=== PATIENT | male | born 1990 | race Two or more races ===

== ENCOUNTER 2025-04-20 23:25 | Emergency (ER) | payer OTHER ==
[~2025-04-20] VITALS: Ht 185.4 cm; Wt 128.8 kg
[2025-04-21 01:04] VITALS: BP 122/68; PULSE 57; RESP 16; TEMP 98.6; O2SAT 95
[2025-04-21] MEDS: HYDROcodone-ACET 5/325MG TAB PO ONE (01:04)
[2025-04-21] MEDS: KETOROLAC TROMETH 60MG/2ML VIAL IM ONE (01:04)
[2025-04-21] MEDS: cefTRIAXone SOD 1,000 MG VL IM ONE (01:05)
[2025-04-21] MEDS: BENZOCAINE (DENTAL) 20 % SPRAY 60ML MT ONE (01:05)
[2025-04-21] MEDS ORDERED: CLIN1CAP70 PO (01:12)
[2025-04-21] MEDS ORDERED: IBUP-1456 PO (01:12)
--- NOTE | 2025-04-21 01:13 | ED.PDOC ---
Eye-HPI HPI Comments PT CAME INTO THE ER WITH CC OF TOOTH PAIN X2 DAYS ON THE RIGHT SIDE. PT IS A&OX4 RR EVEN AND REGULAR NO DISTRESS NOTED AT THIS TIME. PT DENIES N/V/D CP SOB. PT ALSO STATES THAT HE HAS BEEN HAVING URINARY URGENCY ISSUES X1 DAY. DENIES THROAT SWELLING, CP, DEL FEVER/CHILLS Chief Complaint: Tooth Pain Time Seen by MD: 23:29 Reviewed Notes: Nurses Notes, Medications, Allergies Home Meds Active Scripts Ibuprofen (Ibuprofen) 800 Mg Tab, 800 MG PO Q8HP PRN for 5 Days, #15 TAB Prov:KVNG WANGK ELECTROPHYSIOLOGY TECHNOLOGIST 04/21/25 Clindamycin Hcl (Clindamycin Hcl) 300 Mg Cap, 300 MG PO QID for 7 Days, #28 CAP Prov:RADHA WANG ELECTROPHYSIOLOGY TECHNOLOGIST 04/21/25 Information Source: Patient Mode of Arrival: Ambulatory Past Medical History PAST MEDICAL HISTORY: Denies Surgical History: Denies all surgeries Family History Family History: Unknown Social History Smoker: Non-Smoker Alcohol: Denies ETOH Use Drugs: Denies Drug Use All Other Systems: Reviewed and Negative (see hpi) Physical Exam General Appearance: No Apparent Distress, Normal HEENT: Normal ENT Inspection, Pharynx Normal, TMs Normal Neck: Full Range of Motion, Non-Tender, Normal, Normal Inspection Respiratory: Chest Non-Tender, Lungs Clear, No Accessory Muscle Use, No Respiratory Distress, Normal Breath Sounds Cardiovascular: No Edema, No JVD, No Murmur, No Gallop, Normal Peripheral Pulses, Regular Rate/Rhythm Breast Exam: Deferred Gastrointestinal: No Organomegaly, Non Tender, No Pulsatile Mass, Normal Bowel Sounds, Soft Genitalia: Deferred Pelvic: Deferred Rectal: Deferred Extremities: No calf tenderness, Normal capillary refill, Normal inspection, Normal range of motion, Non-tender, No pedal edema Musculoskeletal : Apperance: Normal Neurologic: Alert, channel development director II-XII nml as Tested, No Motor Deficits, Normal Affect, Normal Mood, No Sensory Deficits Cerebellar Function: Normal Reflexes: Normal Skin: Dry, Normal Color, Warm Lymphatic: No Adenopathy Was a procedure done? Was a procedure done?: No EENT DIFF Eye: N/A Sore Throat: Kyle's Angina, Peritonsillar Abscess, Peritonsillar Cellulitis, Pharyngitis X-Ray, Labs, Meds, VS Vital Signs Date Time Temp Pulse Resp B/P (MAP) Pulse Ox O2 Delivery O2 Flow Rate FiO2 04/21/25 01:04 57 16 95 Room Air 04/21/25 01:04 98.6 57 16 122/68 (86) 95 98.6 04/20/25 23:28 97.1 64 18 123/42 97 97.1 Current Medications Medications (Trade) Dose Ordered Sig/Portia Route Start Time Stop Time Status Last Admin Ketorolac Tromethamine (Toradol Injection) 60 mg ONCE ONCE IM 04/21/25 00:45 04/21/25 00:46 DC 04/21/25 01:04 Ceftriaxone Sodium (Rocephin) 1,000 mg ONCE ONCE IM 04/21/25 00:45 04/21/25 00:46 DC 04/21/25 01:05 Benzocaine (Hurricaine [place]) 1 spr ONCE ONCE MT 04/21/25 00:45 04/21/25 00:46 DC 04/21/25 01:05 Acetaminophen/ Hydrocodone Bitart ([place] 5/325MG Tab) 1 tab ONCE ONCE PO 04/21/25 00:45 04/21/25 00:46 DC 04/21/25 01:04 Time of 1ST Reevaluation: 23:29 Reevaluation 1ST: Unchanged Time of 2ND Reevaluation: 01:10 Reevaluation 2ND: Improved Patient Education/Counseling: Diagnosis, Treatment, Need For Follow Up Family Education/Counseling: Diagnosis, Treatment, Need For Follow Up SEPSIS Sepsis Screen Date sepsis recognized/suspect: Apr 20, 2025 Time Sepsis recognized/suspect: 3 Recent Procedure: No On Antibiotic Therapy: No Respiratory Rate >20: No Heart Rate >90: No Temp<36 C (96.8 F) or >38.3 C: No SBP <90 or MAP <65 mmHG: No New Acute Mental Status Change: No Is the patient on CPAP, BIPAP,: No Vital Signs Date Time Temp Pulse Resp B/P (MAP) Pulse Ox O2 Delivery O2 Flow Rate FiO2 04/21/25 01:04 57 16 95 Room Air 04/21/25 01:04 98.6 57 16 122/68 (86) 95 98.6 04/20/25 23:28 97.1 64 18 123/42 97 97.1 Medications Medications Dose Ordered Sig/Portia Route Start Time Stop Time Status Last Admin Dose Admin Acetaminophen/ Hydrocodone Bitart 1 tab ONCE ONCE PO 04/21/25 00:45 04/21/25 00:46 DC 04/21/25 01:04 Benzocaine 1 spr ONCE ONCE MT 04/21/25 00:45 04/21/25 00:46 DC 04/21/25 01:05 Ceftriaxone Sodium 1,000 mg ONCE ONCE IM 04/21/25 00:45 04/21/25 00:46 DC 04/21/25 01:05 Ketorolac Tromethamine 60 mg ONCE ONCE IM 04/21/25 00:45 04/21/25 00:46 DC 04/21/25 01:04 Departure 1 Departure Time of Disposition: 01:10 Impression: Primary Impression: Infected dental caries Disposition: 01 HOME / SELF CARE / HOMELESS Condition: Stable e-Prescriptions Ibuprofen (Ibuprofen) 800 Mg Tab 800 MG PO Q8HP PRN for 5 Days, #15 TAB Prov: RADHA WANG 04/21/25 Clindamycin Hcl (Clindamycin Hcl) 300 Mg Cap 300 MG PO QID for 7 Days, #28 CAP Prov: RADHA WANG 04/21/25 Discharged With: Friend Critical Care Note Critical Care Time?: No Stability Stability form required: No RADHA WANG Apr 21, 2025 01:13
== END 2025-04-21 01:17 | disposition home or self-care (01) ==
LOC: ER 23:25
DX: K04.7 Periapical abscess without sinus (principal); Z79.899 Other long term (current) drug therapy
CPT/HCPCS: 96372; 99284; J0696; J1885